=== PATIENT | male | born 1990 | race African-American/Black ===

== ENCOUNTER 2021-07-12 18:07 | Emergency (ER) | payer OTHER ==
--- NOTE | 2021-07-12 18:45 | XRAY Report ---
PROCEDURE: Chest 1 View X-Ray INDICATIONS: Chest pain TECHNIQUE: One view of the chest was acquired. COMPARISON: None available FINDINGS: Surgical changes and devices: None. Lungs and pleura: Low lung volumes. No dense consolidations, effusions, or pneumothorax. Mediastinum: Mediastinal contours appear normal. Heart size is normal. Bones and chest wall: No suspicious bony lesions. Overlying soft tissues appear unremarkable. IMPRESSION: Given low lung volumes, no acute cardiopulmonary disease. Reviewed by: Jessica Cardenas MD on 07/12/2021 6:44 PM PST Approved by: Jessica Cardenas MD on 07/12/2021 6:44 PM PST Station ID: [id number]
[2021-07-12 19:10] LABS: BASOPHILS % (AUTO) 0.5 %; EOSINOPHILS # (AUTO) 0.1 10^3/uL (0.0-0.7); HCT - HEMATOCRIT 42.9 % (42.0-52.0); HGB - HEMOGLOBIN 14.3 g/dL (14.0-18.0); LYMPHOCYTES # (AUTO) 3.2 10^3/uL (1.5-3.5); LYMPHOCYTES % (AUTO) 39.2 %; MEAN CORPUSCULAR HEMOGLOBIN 28.6 pg (27.0-31.0); MEAN CORPUSCULAR HGB CONC 33.3 g/dL (32.0-36.0); MEAN CORPUSCULAR VOLUME 85.8 fL (80.0-94.0); MEAN PLATELET VOLUME 9.5 fL (7.4-11.4); MONOCYTES # (AUTO) 0.6 10^3/uL (0.0-1.0); NEUTROPHILS # (AUTO) 4.2 10^3/uL (1.5-6.6); NEUTROPHILS % (AUTO) 52.1 %; PLT - PLATELET COUNT 293 10^3/uL (130-450); RED CELL DISTRIBUTION WIDTH 13.4 % (12.0-15.0)
[2021-07-12 19:24] LABS: ALBUMIN 4.2 g/dL (3.2-5.5); ALBUMIN/GLOBULIN RATIO 1.3 (1.0-2.2); BILIRUBIN,TOTAL 0.5 mg/dL (0.2-1.0); POTASSIUM 3.7 mmol/L (3.5-5.0); TOTAL PROTEIN 7.5 g/dL (6.7-8.2)
--- NOTE | 2021-07-12 23:49 | ED Physician Documentation ---
History of Present Illness - Stated complaint Stated Complaint: CHEST PAIN / COUGH - Chief complaint Chief Complaint: Cardiac - History obtained from History obtained from: Patient - Additonal information Additional information: 31yM with pmh htn, preDM, p/w CP for past several months, substernal, ttp, nonradiating, a/w soa. patient recently developed sore throat and nonproductive cough as well. denies fever. Review of Systems Ten Systems: 10 systems reviewed and negative Constitutional: denies: Fever, Chills Cardiac: reports: Chest pain / pressure Respiratory: reports: Dyspnea, Cough PD PAST MEDICAL HISTORY - Past Medical History Past Medical History: Yes Cardiovascular: Hypertension Endocrine/Autoimmune: Other : Kidney stones Psych: Depression, Anxiety Other Past Medical History: Pre DM. insomnia - Past Surgical History Past Surgical History: Yes - Present Medications Home Medications: Ambulatory Orders Medication Instructions Recorded Confirmed Lisinopril [Zestril] 10 mg PO DAILY 07/12/21 07/12/21 Phentermine HCl 07/12/21 Phentermine HCl 07/12/21 Phentermine HCl 37.5 mg PO DAILY 07/12/21 07/12/21 metFORMIN [Glucophage] 500 mg PO BID 07/12/21 07/12/21 - Allergies Allergies/Adverse Reactions: Allergies Allergy/AdvReac Type Severity Reaction Status Date / Time No Known Drug Allergies Allergy Verified 07/12/21 18:17 - Social History Does the pt smoke?: No Smoking Status: Never smoker Does the pt drink ETOH?: Yes Does the pt have substance abuse?: No - Immunizations Immunizations are current?: Yes PD ED PE NORMAL - Vitals Vital signs reviewed: Yes - General General: Alert and oriented X 3, No acute distress, Well developed/nourished - HEENT HEENT: Atraumatic, PERRL, EOMI - Neck Neck: Supple, no meningeal sign - Cardiac Cardiac: RRR - Respiratory Respiratory: No respiratory distress, Clear bilaterally - Abdomen Abdomen: Non tender, Non distended - Derm Derm: Normal color, Warm and dry - Extremities Extremities: No deformity, No edema - Neuro Neuro: No motor deficit, No sensory deficit, Normal speech - Psych Psych: Normal mood, Normal affect Results - Vitals Vitals: Vital Signs - 24 hr 07/12/21 07/12/21 07/12/21 18:12 20:55 21:30 Temperature 35.4 C L 36.8 C Heart Rate 89 82 84 Respiratory 16 15 20 Rate Blood Pressure 164/75 H 174/95 H 159/87 H O2 Saturation 99 99 97 07/12/21 07/13/21 23:21 00:03 Temperature 36.8 C Heart Rate 73 71 Respiratory 22 19 Rate Blood Pressure 137/82 H 122/72 O2 Saturation 99 99 Oxygen O2 Source Room air - EKG (time done) 1822 Rate: Rate (enter#) (85) Rhythm: NSR [place]: Normal Intervals: Normal PA QRS: Normal Ischemia: Normal ST segments - Labs Labs: Laboratory Tests 07/12/21 07/12/21 07/12/21 19:06 19:06 19:06 WBC 8.0 RBC 5.00 Hgb 14.3 Hct 42.9 MCV 85.8 MCH 28.6 MCHC 33.3 RDW 13.4 Plt Count 293 MPV 9.5 Neut # (Auto) 4.2 Lymph # (Auto) 3.2 [place] # (Auto) 0.6 Eos # (Auto) 0.1 Baso # (Auto) 0.0 Absolute Nucleated RBC 0.00 Nucleated RBC % 0.0 Sodium 140 Potassium 3.7 Chloride 104 Carbon Dioxide 26 Anion Gap 10.0 BUN 10 Creatinine 1.0 Estimated GFR (MDRD) 106 Glucose 98 Calcium 10.0 Total Bilirubin 0.5 AST 40 ALT 84 H Alkaline Phosphatase 73 Troponin I High Sens 2.4 Total Protein 7.5 Albumin 4.2 Globulin 3.3 Albumin/Globulin Ratio 1.3 Lipase 29 07/12/21 22:34 WBC RBC Hgb Hct MCV MCH MCHC RDW Plt Count MPV Neut # (Auto) Lymph # (Auto) [place] # (Auto) Eos # (Auto) Baso # (Auto) Absolute Nucleated RBC Nucleated RBC % Sodium Potassium Chloride Carbon Dioxide Anion Gap BUN Creatinine Estimated GFR (MDRD) Glucose Calcium Total Bilirubin AST ALT Alkaline Phosphatase Troponin I High Sens 2.4 Total Protein Albumin Globulin Albumin/Globulin Ratio Lipase PD MEDICAL DECISION MAKING - ED course ED course: 31yM p/w acute on chronic CP and SOA, as well as new sore throat and cough. covid test sent. workup in ED noncontributory. plan to dc home with outpatient f/u with [facility]. Departure - Departure Disposition: 01 Home, Self Care Clinical Impression: Chest pain, Cough, Sore throat Condition: Good Instructions: ED Chest Pain Atypical Unkn Cause Comments: You are seen in the emergency department for evaluation of chest pain, shortness of breath, cough, and sore throat. [place] Your lab work, chest x-ray, EKG were normal. Return to the emergency room if you have any new or worsening symptoms or other concerns. A Covid test was sent which will result in a couple days. Stay home and quarantine until that time. Forms: Activity restrictions Discharge Date/Time: 07/13/21 00:08
[2021-07-13 00:04] VITALS: BP 122/72
== END 2021-07-13 00:08 | disposition home or self-care (01) ==
LOC: ED 18:07
DX: R07.89 Other chest pain (principal); R06.02 Shortness of breath; R05.9 Cough, unspecified; J02.9 Acute pharyngitis, unspecified; Z20.822 Contact with and (suspected) exposure to COVID-19; I10 Essential (primary) hypertension; R73.03 Prediabetes
CPT/HCPCS: 36415; 80053; 83690; 84484; 85025; 93005; 99282; 99284

== ENCOUNTER 2022-02-25 20:17 | Outpatient (CLI) | payer OTHER | END 2022-02-25 20:18 | disposition left against medical advice (07) | LOC: EMS 20:17 | DX: R00.0 Tachycardia, unspecified (principal); R06.02 Shortness of breath; R61 Generalized hyperhidrosis; F41.9 Anxiety disorder, unspecified ==

== ENCOUNTER 2022-12-30 23:14 | Emergency (ER) | payer OTHER ==
--- NOTE | 2022-12-30 23:25 | ED Physician Documentation ---
History of Present Illness - Stated complaint Stated Complaint: ALLERGIC REACTION BACK - Chief complaint Chief Complaint: Allergic Rx - History obtained from History obtained from: Patient - Additonal information Additional information: Patient noted painful swelling on his right anterolateral lower chest wall 2-3 days ago. No h/o similar symptoms, no inciting event. He suspects it was due to repetitious friction from tight clothing. He applied a large, rectangular-shaped adhesive dressing to the area to prevent further friction. He applied the bandage this morning and gradually developed (chief complaint of) redness, burning and irritation that correlates with the adhesive area of the bandage. Review of Systems Constitutional: denies: Fever Skin: reports: Rash PD PAST MEDICAL HISTORY - Past Medical History Cardiovascular: Hypertension Endocrine/Autoimmune: Other : Kidney stones Psych: Depression, Anxiety - Past Surgical History Past Surgical History: Yes - Present Medications Home Medications: Ambulatory Orders Medication Instructions Recorded Confirmed Lisinopril [Zestril] 10 mg PO DAILY 07/12/21 07/12/21 Phentermine HCl 07/12/21 Phentermine HCl 07/12/21 Phentermine HCl 37.5 mg PO DAILY 07/12/21 07/12/21 metFORMIN [Glucophage] 500 mg PO BID 07/12/21 07/12/21 Doxycycline [Vibramycin] 100 mg PO BID #9 tablet 12/30/22 Hydrocortisone Valerate 1 film TP BID #45 gm 12/30/22 - Allergies Allergies/Adverse Reactions: Allergies Allergy/AdvReac Type Severity Reaction Status Date / Time No Known Drug Allergies Allergy Verified 12/30/22 23:19 - Social History Does the pt smoke?: No Smoking Status: Never smoker Does the pt drink ETOH?: Yes Does the pt have substance abuse?: No - Immunizations Immunizations are current?: Yes PD ED PE NORMAL - Vitals Vital signs reviewed: Yes - General General: Alert and oriented X 3, No acute distress, Well developed/nourished PD ED PE EXPANDED - Derm SKin visual: 1 - rash (raised erythema in rectangular pattern; the skin within the rectangular outline is normal except for a solitary, tender pustule with 2-3 mm surrounding erythema but without fluctuance or palpable margins to suggest abscess) Results - Vitals Vitals: Oxygen O2 Source Room air PD Medical Decision Making - ED course Complexity details: considered differential, d/w patient ED course: Exam findings are consistent with contact dermatitis, with chest wall erythema in a clearly rectangular shape that would correlate with a typical large-sized adhesive bandage. There are no indications of generalized allergic reaction, and while I did advise him that he can take anti-histamine such as benadryl, this will likely not be as effective as topical steroid which I am prescribing. He asks if there is a means of providing temporary relief until he can get rx fill ed, and thus EMLA is applied to the area. He is also given doxycycline PO with short course rx for same to cover possible early/focal infection (the central lesion/pustule noted in PE, above) Departure - Departure Disposition: 01 Home, Self Care Clinical Impression: Contact dermatitis Qualifiers: Contact dermatitis type: unspecified Contact dermatitis trigger: adhesive Qualified Code(s): L23.1 - Allergic contact dermatitis due to adhesives Condition: Good Instructions: ED Dermatitis Contact Follow-Up: LORELEI SOOD MD [Primary Care Provider] - Within 1 week (Follow up within 5-7 days with primary care provider if symptoms do not resolve) Prescriptions: Hydrocortisone Valerate 1 film TP BID #45 gm Doxycycline [Vibramycin] 100 mg PO BID #9 tablet Comments: You appear to be have a localized reaction (contact dermatitis) to the adhesive bandage that you had been using on the right chest wall. A topical anesthetic was applied to the area in the ER. A prescription for a topical steroid has been electronically submitted to the [facility] pharmacy in [place]. You were also given a dose of an antibiotic (doxycycline) in the emergency department, as there appears to be a focal infection in the center of the area of dermatitis. A prescription for this antibiotic was also electronically fajardo bmitted to [facility] in [place] for a 5-day course. You should also apply a topical antibiotic (such as bacitracin) to the tender lesion in the center of the area of the contact dermatitis. Forms: PCP List Discharge Date/Time: 12/31/22 00:01
[2022-12-30 23:27] VITALS: BP 160/90
[2022-12-30] MEDS ORDERED: LIDOCAINE/PRILOCAINE 2.5% CREAM 5 GM TUBE TOP STA (23:44)
[2022-12-30] MEDS ORDERED: BACITRACIN ZINC OINT 1 PACKET TOP STA (23:45)
[2022-12-30] MEDS ORDERED: DOXYCYCLINE 100 MG TABLET PO STA (23:45)
== END 2022-12-31 00:01 | disposition home or self-care (01) ==
LOC: ED 23:14
DX: L23.1 Allergic contact dermatitis due to adhesives (principal)
CPT/HCPCS: 99282; 99283; A9270; J3490